=== PATIENT | female | born 1985 | race Caucasian/White ===

== ENCOUNTER 2021-12-29 21:54 | Inpatient (IN) | payer OTHER ==
[~2021-12-29] VITALS: Ht 167.6 cm; Wt 84.7 kg
[2021-12-29 22:32] LABS: HEMATOCRIT 40.4 % (36.0-47.0); HEMOGLOBIN 11.6 g/dl (12.0-15.5); MEAN CORPUSCULAR HEMOGLOBIN 20.9 pg (27.0-33.0); MEAN CORPUSCULAR HGB CONC 28.7 g/dl (32.0-36.5); MEAN CORPUSCULAR VOLUME 72.8 fl (80.0-96.0); PLATELET COUNT, AUTOMATED 376 10^3/uL (150-450); RED BLOOD COUNT 5.55 10^6/uL (4.00-5.40)
[2021-12-29 23:04] LABS: RSV AMPLIFICATION NEGATIVE (NEGATIVE)
[2021-12-29 23:07] LABS: ACETAMINOPHEN LEVEL < 2.0 UG/ML (10.0-30.0); AMPHETAMINES LEVEL URINE NEGATIVE (NEGATIVE); BARBITURATES URINE NEGATIVE (NEGATIVE); BENZODIAZEPINES URINE NEGATIVE (NEGATIVE); BLOOD UREA NITROGEN 10 MG/DL (7-18); CANNABINOIDS URINE POSITIVE (NEGATIVE); CARBON DIOXIDE LEVEL 26 MEQ/L (21-32); CHLORIDE LEVEL 107 MEQ/L (98-107); COCAINE METABOLITE URINE NEGATIVE (NEGATIVE); CREATININE FOR GFR 0.94 MG/DL (0.55-1.30); ETHYL ALCOHOL (ETHANOL) < 0.003 % (0.000-0.010); GLOMERULAR FILTRATION RATE > 60.0 (>60); GLUCOSE, FASTING 92 MG/DL (70-100); METHADONE URINE NEGATIVE (NEGATIVE); OPIATES URINE NEGATIVE (NEGATIVE); PHENCYCLIDINE URINE NEGATIVE (NEGATIVE); POTASSIUM SERUM 3.4 MEQ/L (3.5-5.1); SALICYLATE LEVEL < 1.7 MG/DL (5.0-30.0); SODIUM LEVEL 142 MEQ/L (136-145)
[2021-12-30 04:51] LABS: HCG, SERUM QUALITATIVE NEGATIVE (NEGATIVE)
[2021-12-30 04:54] LABS: ALBUMIN 3.9 GM/DL (3.2-5.2); ALT/SGPT 23 U/L (12-78); BILIRUBIN,DIRECT < 0.1 MG/DL (0.0-0.2); BILIRUBIN,TOTAL 0.2 MG/DL (0.2-1.0); TOTAL PROTEIN 8.2 GM/DL (6.4-8.2)
[2021-12-30] MEDS ORDERED: POTASSIUM CHLORIDE 10MEQ SR TABLET PO ONE (06:45)
[2021-12-30] MEDS ORDERED: ZOLO100T PO (16:40)
[2021-12-30] MEDS ORDERED: VENL37.598 PO (16:40)
[2021-12-30] MEDS ORDERED: BUDE0.254 NARES (16:40)
[2021-12-30] MEDS ORDERED: HOME MED LIST COMPLETE! XX SCH (16:45)
[2021-12-31] MEDS ORDERED: VENLAFAXINE **XR** 37.5 MG CAPSULE PO SCH (09:00)
[2021-12-31] MEDS ORDERED: SERTRALINE 100 MG TAB PO SCH (09:00)
[2021-12-31] MEDS ORDERED: MOM 30ML SUSPENSION UDC PO PRN (13:15)
[2021-12-31] MEDS ORDERED: MAALOX 30 ML SUSP *UDC PO PRN (13:15)
[2021-12-31] MEDS ORDERED: ACETAMINOPHEN TAB 650MG DOSE (2X325MG) PO PRN (13:15)
[2021-12-31] MEDS: traZODone 50 MG TAB PO PRN (23:45)
[2022-01-01 06:17] VITALS: BP 142/86
[2022-01-01] MEDS: VENLAFAXINE **XR** 75MG CAPSULE PO SCH (08:05)
[2022-01-01] MEDS ORDERED: SERTRALINE HCL 25 MG TABLET PO SCH (09:00)
[2022-01-01] MEDS ORDERED: VENLAFAXINE 37.5 MG TAB PO SCH (09:00)
[2022-01-01] MEDS: CETIRIZINE (ZyrTEC) 10 MG TAB PO SCH (13:31)
[2022-01-01 16:11] VITALS: BP 129/74
[2022-01-01] MEDS: BUDESONIDE 0.25 MG/2 ML INHALATION SUSPENSION INH SCH (20:00)
[2022-01-02] MEDS: traZODone 50 MG TAB PO PRN ×2 (00:14→21:50)
[2022-01-02 06:17] VITALS: BP 126/68
[2022-01-02 07:00] LABS: HEMOGLOBIN 10.6 g/dl (12.0-15.5); MEAN CORPUSCULAR HEMOGLOBIN 21.1 pg (27.0-33.0); MEAN CORPUSCULAR HGB CONC 29.4 g/dl (32.0-36.5); MEAN CORPUSCULAR VOLUME 71.7 fl (80.0-96.0); PLATELET COUNT, AUTOMATED 223 10^3/uL (150-450); RED BLOOD COUNT 5.02 10^6/uL (4.00-5.40); WHITE BLOOD COUNT 3.7 10^3/uL (4.0-10.0)
[2022-01-02 07:35] LABS: BLOOD UREA NITROGEN 8 MG/DL (7-18); CALCIUM LEVEL 9.2 MG/DL (8.5-10.1); CARBON DIOXIDE LEVEL 29 MEQ/L (21-32); CHLORIDE LEVEL 108 MEQ/L (98-107); CREATININE FOR GFR 0.66 MG/DL (0.55-1.30); FERRITIN 7 NG/ML (8-252); GLOMERULAR FILTRATION RATE > 60.0 (>60); GLUCOSE, FASTING 88 MG/DL (70-100); IRON (FE) 23 UG/DL (50-170); MAGNESIUM LEVEL 2.6 MG/DL (1.8-2.4); PERCENT SATURATION 5.8 % (13.2-45.0); SODIUM LEVEL 140 MEQ/L (136-145); TOTAL IRON BINDING CAPACITY 396 UG/DL (250-450)
[2022-01-02] MEDS: BUDESONIDE 0.25 MG/2 ML INHALATION SUSPENSION INH SCH (08:00)
[2022-01-02] MEDS: CETIRIZINE (ZyrTEC) 10 MG TAB PO SCH (09:32)
[2022-01-02] MEDS: VENLAFAXINE **XR** 75MG CAPSULE PO SCH (09:32)
[2022-01-02] MEDS: FERROUS SULFATE 325MG TAB PO SCH (09:32)
[2022-01-02] MEDS: FLUTICASONE PROP 0.05% NASAL SPRAY 16 GM (FLONASE) NARES SCH (13:31)
[2022-01-02 16:12] VITALS: BP 129/75
[2022-01-03 06:34] VITALS: BP 122/60
[2022-01-03] MEDS: ASCORBIC ACID 500 MG TAB PO SCH (08:59)
[2022-01-03] MEDS: FLUTICASONE PROP 0.05% NASAL SPRAY 16 GM (FLONASE) NARES SCH (08:59)
[2022-01-03] MEDS: CETIRIZINE (ZyrTEC) 10 MG TAB PO SCH (09:00)
[2022-01-03] MEDS: FERROUS SULFATE 325MG TAB PO SCH (09:00)
[2022-01-03] MEDS: VENLAFAXINE **XR** 75MG CAPSULE PO SCH (09:00)
[2022-01-03] MEDS ORDERED: traZODone 25MG PER 1/2 TABLET PO PRN (10:25)
[2022-01-03 18:20] VITALS: BP 150/85
[2022-01-03] MEDS ORDERED: ARIPiprazole 2 MG TAB PO SCH (21:00)
[2022-01-04 06:34] VITALS: BP 127/63
[2022-01-04] MEDS ORDERED: FERR1TAB8 PO (08:47)
[2022-01-04] MEDS ORDERED: VENL75CA47 PO (08:47)
[2022-01-04] MEDS ORDERED: CETI10TA PO (08:47)
[2022-01-04] MEDS ORDERED: ASCO50TA PO (08:47)
[2022-01-04] MEDS ORDERED: ABIL1TAB13 PO (08:47)
[2022-01-04] MEDS: VENLAFAXINE **XR** 75MG CAPSULE PO SCH (08:55)
[2022-01-04] MEDS: FERROUS SULFATE 325MG TAB PO SCH (08:55)
[2022-01-04] MEDS: CETIRIZINE (ZyrTEC) 10 MG TAB PO SCH (08:55)
[2022-01-04] MEDS: FLUTICASONE PROP 0.05% NASAL SPRAY 16 GM (FLONASE) NARES SCH (08:55)
[2022-01-04] MEDS: ASCORBIC ACID 500 MG TAB PO SCH (08:55)
== END 2022-01-04 13:05 | disposition home or self-care (01) | DRG 880 ==
LOC: M ED 21:54 → M ED INP 12-31 13:12 → M PSY 12-31 14:20
PROVIDERS: ADMIT Student in an Organized Health Care Education/Training Program; ATTEND Student in an Organized Health Care Education/Training Program
DX: F41.1 Generalized anxiety disorder (principal); F33.1 Major depressive disorder, recurrent, moderate; F50.2 Bulimia nervosa; Z79.899 Other long term (current) drug therapy; Z91.51 Personal history of suicidal behavior; D50.9 Iron deficiency anemia, unspecified; Z63.0 Problems in relationship with spouse or partner; E87.6 Hypokalemia; R63.4 Abnormal weight loss; F42.4 Excoriation (skin-picking) disorder; F60.5 Obsessive-compulsive personality disorder

== ENCOUNTER 2022-04-09 06:02 | Inpatient (IN) | payer OTHER ==
[~2022-04-09] VITALS: Ht 165.1 cm; Wt 84.8 kg
[~2022-04-09 06:02] MED LIST: ABIL1TAB13 PO; ASCO50TA PO; BUDE0.254 NARES; CETI10TA PO; FERR1TAB8 PO; LIDOCAINE 1% MDV 20ML VIAL SQ PRN; LR 1,000 ML IV ONE; MULT-90 PO; VENL37.598 PO; VENL75CA47 PO; ZOLO100T PO; ceFAZolin SOD 2 GM in IV 1 EA IV ONE
[2022-04-09 06:35] LABS: HEMATOCRIT 38.5 % (36.0-47.0); HEMOGLOBIN 11.9 g/dl (12.0-15.5); MEAN CORPUSCULAR HEMOGLOBIN 24.1 pg (27.0-33.0); MEAN CORPUSCULAR HGB CONC 30.9 g/dl (32.0-36.5); MEAN CORPUSCULAR VOLUME 77.9 fl (80.0-96.0); PLATELET COUNT, AUTOMATED 290 10^3/uL (150-450); RED BLOOD COUNT 4.94 10^6/uL (4.00-5.40); WHITE BLOOD COUNT 4.3 10^3/uL (4.0-10.0)
[2022-04-09] MEDS ORDERED: ACETAMINOPHEN *IV* 1,000 MG IV ONE ×2 (07:00)
[2022-04-09] MEDS ORDERED: fentaNYL 250 MCG/5 ML INJECTION As Ordered ONE (07:09)
[2022-04-09] MEDS ORDERED: LIDOCAINE 2% 100MG/5ML SDV (FOR ANES.) As Ordered ONE (07:09)
[2022-04-09] MEDS ORDERED: ROCURONIUM BROMIDE 50 MG/5 ML VIAL As Ordered ONE ×2 (07:09→08:08)
[2022-04-09] MEDS ORDERED: MIDAZOLAM INJ 2MG/2ML VIAL (J2250 PER 1MG) As Ordered ONE (07:09)
[2022-04-09] MEDS ORDERED: propofoL 200 MG/20 ML VIAL As Ordered ONE (07:09)
[2022-04-09] MEDS ORDERED: dexameTHASONE 4 MG/ML 1ML VIAL (J1100 PER 1MG) As Ordered ONE (07:10)
[2022-04-09] MEDS ORDERED: SUGAMMADEX SODIUM 500 MG/5 ML VIAL (BRIDION) As Ordered ONE (07:10)
[2022-04-09] MEDS ORDERED: ONDANSETRON 4MG/2ML VIAL As Ordered ONE (07:10)
[2022-04-09] MEDS ORDERED: ACETAMINOPHEN 1000MG 100ML IV BTL (OFIRMEV) (J0131 PER 10MG) As Ordered ONE (07:10)
[2022-04-09] MEDS ORDERED: BUPIVACAINE HCL 0.25% 30ML VIAL As Ordered ONE (07:20)
[2022-04-09] MEDS ORDERED: HYDROmorphone HCL 2MG/ML 1ML VIAL As Ordered ONE (08:33)
[2022-04-09] MEDS ORDERED: KETOROLAC 60MG 2ML VIAL As Ordered ONE (11:06)
[2022-04-09] MEDS ORDERED: fentaNYL 100 MCG/2 ML INJECTION IV PRN (11:40)
[2022-04-09] MEDS ORDERED: HYDROMORPHONE HCL 0.5 MG/ 0.5 ML SYRINGE (J1170 PER 1) IV PRN (11:40)
[2022-04-09] MEDS ORDERED: LR 1,000 ML IV SCH ×2 (11:40)
[2022-04-09] MEDS ORDERED: oxyCODONE 5MG TAB PO PRN ×2 (11:40)
[2022-04-09] MEDS ORDERED: ONDANSETRON 4MG/2ML VIAL IV PRN (11:40)
[2022-04-09 12:15] VITALS: BP 130/69
[2022-04-09 12:45] VITALS: BP 131/76
[2022-04-09] MEDS ORDERED: ACETAMINOPHEN 325 MG TAB PO SCH (14:00)
[2022-04-09 14:45] VITALS: BP 100/56
[2022-04-09 15:45] VITALS: BP 120/71
== END 2022-04-09 16:46 | disposition home or self-care (01) | DRG 743 ==
LOC: M OR 06:02 → M MSPAV 12:15
PROVIDERS: ADMIT Obstetrics & Gynecology; ATTEND Obstetrics & Gynecology
PROC: 0UT9FZZ Resection of Uterus, Via Natural or Artificial Opening With Percutaneous Endoscopic Assistance (ICD-10-PCS; principal; 2022-04-09 07:30)
PROC: 0UB78ZZ Excision of Bilateral Fallopian Tubes, Via Natural or Artificial Opening Endoscopic (ICD-10-PCS; 2022-04-09 07:30)
PROC: 0TJB8ZZ Inspection of Bladder, Via Natural or Artificial Opening Endoscopic (ICD-10-PCS; 2022-04-09 07:30)
DX: N93.9 Abnormal uterine and vaginal bleeding, unspecified (principal); Z30.2 Encounter for sterilization; Z88.1 Allergy status to other antibiotic agents; F32.A Depression, unspecified; F41.9 Anxiety disorder, unspecified; Z79.899 Other long term (current) drug therapy